=== PATIENT | male | born 1995 | race African-American/Black ===

== ENCOUNTER 2024-05-18 12:15 | Outpatient (CLI) | payer OTHER ==
--- NOTE | 2024-05-19 02:11 | XRAY Report ---
PROCEDURE: Tib/Fib RT INDICATIONS: PAIN IN RIGHT KNEE TECHNIQUE: 2 views of the tibia and fibula were acquired. COMPARISON: None. FINDINGS: Bones: No fractures or dislocations. No suspicious bony lesions. Old healed mid fibular fracture Soft tissues: No suspicious soft tissue calcifications or masses. IMPRESSION: Old healed mid fibular diaphyseal fracture. No acute fracture or foreign body Reviewed by: Donn Escobedo MD on 05/19/2024 1:09 AM AKELAINE Approved by: Donn Escobedo MD on 05/19/2024 1:09 AM AKELAINE Station ID: [id number]
== END 2024-05-18 12:30 | disposition home or self-care (01) ==
LOC: DI.N 12:15
PROVIDERS: ATTEND Physician Assistant Medical
DX: M25.561 Pain in right knee (principal); S82.401D Unspecified fracture of shaft of right fibula, subsequent encounter for closed fracture with routine healing

== ENCOUNTER 2024-06-15 08:00 | Outpatient (CLI) | payer OTHER ==
[2024-06-15 22:47] LABS: CHLAMYDIA TRACHOMATIS DNA NEGATIVE (NEGATIVE); NEISSERIA GONORRHOEAE DNA NEGATIVE (NEGATIVE); TRICHOMONAS VAGINALIS DNA NEGATIVE (NEGATIVE)
== END 2024-06-15 23:59 | disposition home or self-care (01) ==
LOC: LAB.N 08:00
PROVIDERS: ATTEND Physician Assistant
DX: R30.0 Dysuria (principal)
CPT/HCPCS: 87491; 87591; 87661